=== PATIENT | male | born 1955 | race Caucasian/White ===

== ENCOUNTER → 2018-01-03 | Day surgery (SDC) | payer OTHER ==
[2018-01-02 09:40] LABS: BASOPHILS % 0.5 % (0.0-1.0); EOSINOPHILS # (AUTO) 0.1 (0.0-0.4); LYMPHOCYTES % 36.6 % (18.0-39.1); MEAN CORPUSCULAR HEMOGLOBIN 31.1 pg (28-32); MEAN CORPUSCULAR HGB CONC 33.3 g/dL (31-35); MEAN CORPUSCULAR VOLUME 93.3 fL (81-99); MONOCYTES # (AUTO) 0.5 (0.2-0.8); MONOCYTES % 8.5 % (4.4-11.3); NEUTROPHILS # (AUTO) 2.9 (2.1-6.9); NEUTROPHILS % 52.2 % (38.7-80.0); PLATELET COUNT 165 x10e3/uL (140-360); RED BLOOD COUNT 3.86 x10e6/uL (4.3-5.7); RED CELL DISTRIBUTION WIDTH 12.7 % (11.7-14.4)
[2018-01-02 09:59] LABS: ALANINE AMINOTRANSFERASE 27 IU/L (0-55); ALBUMIN 4.3 g/dL (3.5-5.0); ALBUMIN/GLOBULIN RATIO 1.6 (0.8-2.0); ALKALINE PHOSPHATASE 35 IU/L (40-150); BLOOD UREA NITROGEN 19 mg/dL (7-26); BUN/CREATININE RATIO 18 (6-25); CALCIUM 9.9 mg/dL (8.4-10.2); CARBON DIOXIDE 29 mmol/L (22-29); CHLORIDE 106 mmol/L (98-107); CREATININE, SERUM 1.08 mg/dL (0.72-1.25); EST GLOMERULAR FILTRATION RATE > 60 ML/MIN (60-); GLUCOSE 94 mg/dL (74-118); SODIUM 144 mmol/L (136-145)
[~2018-01-03] VITALS: Ht 193 cm; Wt 127.0 kg
[2018-01-03] VITALS (11 sets, daily range): BP systolic 131–156; BP diastolic 82–96
[~2018-01-03] MED LIST: ALPRAZOLAM 0.5 MG TAB ONE; ASPIRIN325 MG PO; CATAPRES-TTS 11 EACH TD; CLONIDINE HCL0.1 MG PO; DIPHENHYDRAMINE HCL 25 MG CAP ONE; DYAZIDE 37.5-21 EACH PO; ELAVIL PO; FENOFIBRATE145 MG PO; FENTANYL CITRATE/PF 100MCG/2 ML INJ ONE; GABAPENTIN300 MG PO; HEPARIN SOD (PORCINE) 1000 UNIT/ML 30ML ONE; HEPARIN SOD/SOD CHLORIDE 2,000 ML ONE; IOPAMIDOL 370 MG/ML 200 ML INFUS..BTL INJ ONE; LIDOCAINE HCL 2% LOCAL 20 ML VIAL ONE; LIPITOR20 MG PO; LOPRESSOR25 MG PO; LORAZEPAM0.5 MG PO; MIDAZOLAM HCL 2 MG/2 ML VIAL ONE; NEXIUM40 MG PO; NITROGLYCERIN/D5W 200 MCG/ML 250 ML ONE; NORVASC5 MG PO; PRAMIPEXOLE D0.25 MG PO; SODIUM CHLORIDE 0.9% 1000ML 1,000 ML ONE; TYLENOL WITH C1 EACH PO; VERAPAMIL HCL 2.5 MG/ML 2 ML VIAL ONE; ZANAFLEX4 M1 PO; ZANAFLEX4 MG; ZETIA10 MG PO
--- OUTSIDE RECORDS SUMMARY | 2018-01-03 10:06 | XMS REPORT ---
Author Author [facility] Address Unknown Phone Unavailable Care Team Providers Care Plan Nurse Name Role Phone CORTEZ MCCOY III Unavailable Unavailable Problems This patient has no known problems. Allergies, Adverse Reactions, Alerts This patient has no known allergies or adverse reactions. Medications This patient has no known medications. Encounters Start Date/Time End Date/Time Encounter Type Admission Type Attending Clinicians Care Facility Care Department Encounter ID 2017-02-01 06:37:00 2017-02-01 11:30:00 Outpatient C CORTEZ MCCOY III [facility] [place] [id number]
--- NOTE | 2018-01-03 14:28 | Operative Report ---
DATE OF PROCEDURE: January 03, 2018 INDICATIONS: Coronary artery disease with abnormal stress test. PROCEDURES PERFORMED 1. Left heart catheterization, selective coronary angiography. 2. Deployment of right wrist transradial band. COMPLICATIONS: None. RECOMMENDATIONS: Aggressive medical therapy. Access was obtained in the right radial artery. The right ostia of the posterior descending artery had 50% stenosis. Stent in the mid circumflex artery widely patent without restenosis. The left anterior descending artery had mild less than 20% stenosis. No critical lesions were noted. No intervention indicated. Guide and sheath were removed. Right wrist TR band applied. Patient discharged home the same day. Job#: [id number]
== END | disposition home or self-care (01) ==
LOC: CATH LAB 10:04
PROVIDERS: ATTEND Internal Medicine Interventional Cardiology
DX: I25.118 Atherosclerotic heart disease of native coronary artery with other forms of angina pectoris (principal); R94.39 Abnormal result of other cardiovascular function study; Z01.812 Encounter for preprocedural laboratory examination; Z68.35 Body mass index [BMI] 35.0-35.9, adult; Z95.5 Presence of coronary angioplasty implant and graft; Z82.49 Family history of ischemic heart disease and other diseases of the circulatory system
CPT/HCPCS: 36415; 80053; 85025; 93458; C1887; J1644; J2001; J2250; J7030; Q9967; 36140; 77002

== ENCOUNTER → 2020-02-13 | Day surgery (SDC) | payer MEDICARE, OTHER ==
[~2020-02-13] VITALS: Ht 193 cm; Wt 127.0 kg
[~2020-02-13] MED LIST changes: +ACETAMINOPHEN 325 MG TAB ONE; -ALPRAZOLAM 0.5 MG TAB ONE; +BENZOCAINE 20% SPR 60 ML CAN ONE; -DIPHENHYDRAMINE HCL 25 MG CAP ONE; -HEPARIN SOD (PORCINE) 1000 UNIT/ML 30ML ONE; -HEPARIN SOD/SOD CHLORIDE 2,000 ML ONE; -IOPAMIDOL 370 MG/ML 200 ML INFUS..BTL INJ ONE; -LIDOCAINE HCL 2% LOCAL 20 ML VIAL ONE; -NITROGLYCERIN/D5W 200 MCG/ML 250 ML ONE; +SODIUM CHLORIDE 0.9% 1000ML 1,000 ML IV STA; -VERAPAMIL HCL 2.5 MG/ML 2 ML VIAL ONE
--- NOTE | 2020-02-13 08:59 | Diagnostic Imaging Report ---
EXAMINATION: CHEST SINGLE (PORTABLE) INDICATION: Atrial flutter COMPARISON: None FINDINGS: LINES/TUBES:Left chest pacer. EKG leads overlie the chest. LUNGS:The lungs are well-inflated. No focal consolidation or pulmonary edema. Mild left basilar subsegmental atelectasis. PLEURA:No pleural effusion or pneumothorax. MEDIASTINUM:The cardiomediastinal silhouette appears normal in size and shape. Atherosclerotic calcifications of the thoracic aorta. BONES/SOFT TISSUES:No acute osseous injury. ABDOMEN:No free air under the diaphragm. IMPRESSION: Mild left basilar subsegmental atelectasis. No focal pneumonia or pulmonary edema. Signed by: Medina Agustin MD on 02/13/2020 8:56 AM
[2020-02-13 09:22] LABS: BASOPHILS % 0.5 % (0.0-1.0); HEMATOCRIT 38.7 % (38.2-49.6); HEMOGLOBIN 12.3 g/dL (14.0-18.0); LYMPHOCYTES # (AUTO) 0.9 (1.0-3.2); MEAN CORPUSCULAR HEMOGLOBIN 29.9 pg (28-32); MEAN CORPUSCULAR HGB CONC 31.8 g/dL (31-35); MEAN CORPUSCULAR VOLUME 93.9 fL (81-99); MONOCYTES # (AUTO) 0.6 (0.2-0.8); MONOCYTES % 16.2 % (4.4-11.3); NEUTROPHILS # (AUTO) 2.4 (2.1-6.9); NEUTROPHILS % 60.3 % (38.7-80.0); PLATELET COUNT 133 x10e3/uL (140-360); RED BLOOD COUNT 4.12 x10e6/uL (4.3-5.7); RED CELL DISTRIBUTION WIDTH 13.5 % (11.7-14.4)
[2020-02-13 09:34] LABS: INR 1.08; PROTHROMBIN TIME 14.7 seconds (11.9-14.5)
[2020-02-13 09:35] LABS: PARTIAL THROMBOPLASTIN TIME 30.1 seconds (23.8-35.5)
[2020-02-13 09:44] LABS: ALANINE AMINOTRANSFERASE 22 IU/L (0-55); ALBUMIN/GLOBULIN RATIO 1.5 (0.8-2.0); ALKALINE PHOSPHATASE 45 IU/L (40-150); ANION GAP 11.4 mmol/L (8-16); BLOOD UREA NITROGEN 16 mg/dL (7-26); BUN/CREATININE RATIO 16 (6-25); CARBON DIOXIDE 26 mmol/L (22-29); CHLORIDE 107 mmol/L (98-107); CREATINE KINASE 209 IU/L (30-200); CREATININE, SERUM 0.97 mg/dL (0.72-1.25); EST GLOMERULAR FILTRATION RATE > 60 ML/MIN (60-); GLUCOSE 85 mg/dL (74-118); POTASSIUM 4.4 mmol/L (3.5-5.1); SODIUM 140 mmol/L (136-145)
--- NOTE | 2020-02-13 11:36 | Emergency Department Note ---
History of Present Illnes History of Present Illness Chief Complaint: General Medicine Complaints History of Present Illness This is a 64 year old male HERE FOR HIGH HEART RATE, SENT BY DR. MTZ FOR EVALUATION. REPORTS THAT SMITH WILL BE IN TO CARDIOVERT AT HOSPITAL. Historian: Patient Arrival Mode: Car Linker Up Required: No Onset (how long ago): day(s) (3) Location: HEART Quality: TACHYCARDIA Radiation: Reports non-radiation Severity: mild Onset quality: gradual Timing of current episode: constant Progression: waxing and waning Chronicity: new Context: Denies recent illness Relieving factors: none Exacerbating factors: none Associated symptoms: Reports denies other symptoms Treatments prior to arrival: other (DR MTZ GAVE IV AMIODARONE IN OFFICE YEST, STARTED PO 400 BID) Past Medical/Family History Physician Review I have reviewed the patient's past medical and family history. Any updates have been documented here. Past Medical History Recent Fever: No Clinical Suspicion of Infectio: No New/Unexplained Change in Ment: No Past Medical History: Hypertension, CAD, Hyperlipedemia Other Medical History: NEW ONSET A-FLUTTER DX'D 02/12/2020 Past Surgical History: Pacer/AICD, Hip Replacement, Orthopedic Implants Social History Smoking Cessation: Unknown if ever smoked Counseling Performed: No Alcohol Use: None Any Illegal Drug Use: No TB Exposure/Symptoms: No Physically hurt or threatened: No Other Any Pre-Existing Lines (PICC,: No Last Flu: y Last Pneumovax: y Review of Systems Review of Systems Constitutional: Reports no symptoms EENTM: Reports no symptoms Cardiovascular: Reports no symptoms Respiratory: Reports no symptoms Gastrointestinal: Reports no symptoms Genitourinary: Reports no symptoms Musculoskeletal: Reports no symptoms Integumentary: Reports no symptoms Neurological: Reports other (DIZZINESS WITH STANDING) Psychological: Reports no symptoms Endocrine: Reports no symptoms Hematological/Lymphatic: Reports no symptoms Physical Exam Related Data Allergies: Coded Allergies: No Known Allergies (Unverified , 02/13/20) Triage Vital Signs Vital Signs Date Time Temp Pulse Resp B/P (MAP) Pulse Ox O2 Delivery O2 Flow Rate FiO2 02/13/20 08:19 97.9 118 16 95/79 98 Vital signs reviewed: Yes Physical Exam CONSTITUTIONAL Constitutional: Present well-developed, Present well-nourished HENT HENT: Present normocephalic, Present atraumatic, Present oropharynx clear/moist, Present nose normal HENT L/R: Present left ext ear normal, Present right ext ear normal EYES Eyes: Reports PERRL, Reports conjunctivae normal NECK Neck: Present ROM normal PULMONARY Pulmonary: Present effort normal, Present breath sounds normal CARDIOVASCULAR Cardiovascular: Present regular rhythm, Present tachycardia GASTROINTESTINAL Abdominal: Present soft, Present nontender, Present bowel sounds normal GENITOURINARY Genitourinary: Present exam deferred SKIN Skin: Present warm, Present dry MUSCULOSKELETAL Musculoskeletal: Present ROM normal NEUROLOGICAL Neurological: Present alert, Present oriented x 3, Present no gross motor or sensory deficits PSYCHOLOGICAL Psychological: Present mood/affect normal, Present judgement normal Results Laboratory Result Diagram: 02/13/20 0820 02/13/20 0820 Laboratory Laboratory Tests Test 02/13/20 08:20 White Blood Count 3.95 x10e3/uL (4.8-10.8) Red Blood Count 4.12 x10e6/uL (4.3-5.7) Hemoglobin 12.3 g/dL (14.0-18.0) Hematocrit 38.7 % (38.2-49.6) Mean Corpuscular Volume 93.9 fL (81-99) Mean Corpuscular Hemoglobin 29.9 pg (28-32) Mean Corpuscular Hemoglobin Concent 31.8 g/dL (31-35) Red Cell Distribution Width 13.5 % (11.7-14.4) Platelet Count 133 x10e3/uL (140-360) Neutrophils (%) (Auto) 60.3 % (38.7-80.0) Lymphocytes (%) (Auto) 22.0 % (18.0-39.1) Monocytes (%) (Auto) 16.2 % (4.4-11.3) Eosinophils (%) (Auto) 1.0 % (0.0-6.0) Basophils (%) (Auto) 0.5 % (0.0-1.0) Neutrophils # (Auto) 2.4 (2.1-6.9) Lymphocytes # (Auto) 0.9 (1.0-3.2) Monocytes # (Auto) 0.6 (0.2-0.8) Eosinophils # (Auto) 0.0 (0.0-0.4) Basophils # (Auto) 0.0 (0.0-0.1) Absolute Immature Granulocyte (auto 0 x10e3/uL (0-0.1) Prothrombin Time 14.7 seconds (11.9-14.5) Prothromb Time International Ratio 1.08 Activated Partial Thromboplast Time 30.1 seconds (23.8-35.5) Sodium Level 140 mmol/L (136-145) Potassium Level 4.4 mmol/L (3.5-5.1) Chloride Level 107 mmol/L (98-107) Carbon Dioxide Level 26 mmol/L (22-29) Anion Gap 11.4 mmol/L (8-16) Blood Urea Nitrogen 16 mg/dL (7-26) Creatinine 0.97 mg/dL (0.72-1.25) Estimat Glomerular Filtration Rate > 60 ML/MIN (60-) BUN/Creatinine Ratio 16 (6-25) Glucose Level 85 mg/dL (74-118) Calcium Level 9.0 mg/dL (8.4-10.2) Total Bilirubin 0.3 mg/dL (0.2-1.2) Aspartate Amino Transf (AST/SGOT) 19 IU/L (5-34) Alanine Aminotransferase (ALT/SGPT) 22 IU/L (0-55) Alkaline Phosphatase 45 IU/L (40-150) Creatine Kinase 209 IU/L (30-200) Creatine Kinase MB 1.10 ng/mL (0-5.0) Troponin I 0.033 ng/mL (0-0.300) B-Type Natriuretic Peptide 215.0 pg/mL (0-100) Total Protein 6.7 g/dL (6.5-8.1) Albumin 4.0 g/dL (3.5-5.0) Globulin 2.7 g/dL (2.3-3.5) Albumin/Globulin Ratio 1.5 (0.8-2.0) Lab results reviewed: Yes Imaging Imaging results reviewed: Yes Impressions Procedure: [id number] DX/CHEST SINGLE (PORTABLE) Exam Date: 02/13/20 Exam Time: 819 REPORT STATUS: Signed EXAMINATION: CHEST SINGLE (PORTABLE) INDICATION: Atrial flutter COMPARISON: None FINDINGS: LINES/TUBES:Left chest pacer. EKG leads overlie the chest. LUNGS:The lungs are well-inflated. No focal consolidation or pulmonary edema. Mild left basilar subsegmental atelectasis. PLEURA:No pleural effusion or pneumothorax. MEDIASTINUM:The cardiomediastinal silhouette appears normal in size and shape. Atherosclerotic calcifications of the thoracic aorta. BONES/SOFT TISSUES:No acute osseous injury. ABDOMEN:No free air under the diaphragm. IMPRESSION: Mild left basilar subsegmental atelectasis. No focal pneumonia or pulmonary edema. Signed by: Medina Agustin MD on 02/13/2020 8:56 AM Procedures 12 Lead ECG Interpretation ECG Interpretation : ECG: ECG 1 Linker Up: Interpreted by ED physician Date: Feb 13, 2020 Time: 08:17 Rhythm: atrial flutter (2:1 CONDUCTION) QRS axis: left ST segments normal: Yes T wave inversion: II, III T waves flattening: I, aVL, aVF Clinical Impression: abnormal ECG Assessment & Plan Medical Decision Making MDM CHECK CBC, CHEM, CARDIACS, ECG, TSH, CXR - R/O ELECTROLYTE ABNL, HYPERTHYROID, STEMI/NSTEMI Reassessment Reassessment DR MTZ WANTS [facility] AND THEN WILL CARDIOVERT PT WENT TO [facility], SYNC CARDIOVERTED TO [facility] - DC PER DR MTZ Assessment & Plan Final Impression: (1) Atrial flutter Depart Disposition: HOME, SELF-CARE Last Vital Signs Date Time Temp Pulse Resp B/P (MAP) Pulse Ox O2 Delivery O2 Flow Rate FiO2 02/13/20 09:58 78 18 116/86 98 02/13/20 08:19 97.9 Home Meds Reported Medications Gabapentin (GABAPENTIN) 300 Mg Capsule, 300 MG PO DAILY, #60 CAP 01/02/18 Lorazepam (LORAZEPAM) 0.5 Mg Tablet, 0.5 MG PO Q6H PRN for ANXIETY, TAB 01/02/18 Tizanidine Hcl (ZANAFLEX) 4 Mg Tablet 01/02/18 Tizanidine Hcl (ZANAFLEX) 4 Mg Capsule, 4 MG PO TID PRN for INDIGESTION 01/02/18 Amlodipine Besylate (NORVASC) 5 Mg Tab, 5 MG PO DAILY, #30 TAB 01/02/18 Metoprolol Tartrate (LOPRESSOR) 25 Mg Tab, 100 MG PO DAILY, #60 TAB 01/02/18 Clonidine Hcl (CLONIDINE HCL) 0.1 Mg Tablet, 1 TAB PO HS, #60 TAB 01/02/18 Clonidine (CATAPRES-TTS 1) 1 Each Patch.tdwk, 1 EACH TD, PATCH 01/02/18 Atorvastatin Calcium (LIPITOR) 20 Mg Tablet, 40 MG PO DAILY, #30 TAB 01/02/18 Ezetimibe (ZETIA) 10 Mg Tablet, 10 MG PO DAILY, #30 TAB 01/02/18 Fenofibrate Nanocrystallized (FENOFIBRATE) 145 Mg Tablet, 145 MG PO DAILY 01/02/18 [Elavil] No Conflict Check, 50 MG PO DAILY 01/02/18 Aspirin (ASPIRIN) 325 Mg Tablet, 325 MG PO DAILY, #30 TAB 01/02/18 Acetaminophen With Codeine (TYLENOL WITH CODEINE #3 TABLET) 1 Each Tablet, 300 MG PO PRN, TAB 01/02/18 Esomeprazole Magnesium (NEXIUM) 40 Mg Capsule.dr, 40 MG PO DAILY PROTONIX [facility] FOR NEXIUM [facility] 01/02/18 Pramipexole Di-Hcl (PRAMIPEXOLE DIHYDROCHLORIDE) 0.25 Mg Tablet, 0.5 MG PO DAILY 01/02/18 Triamterene/Hydrochlorothiazid (DYAZIDE 37.5-25 CAPSULE) 1 Each Capsule, 1 CAP PO DAILY 01/02/18 Medications in the ED Sodium Chloride 1,000 ml @ 0 mls/hr Q0M STAT IV Last administered on 02/13/20at 09:08; Admin Dose 1,000 MLS/HR; Start 02/13/20 at 08:29; Stop 02/13/20 at 08:31; Status DC Midazolam HCl 4 mg STK-MED ONCE .ROUTE ; Start 02/13/20 at 11:17; Stop 02/13/20 at 11:12; Status DC Fentanyl Citrate 100 mcg STK-MED ONCE .ROUTE ; Start 02/13/20 at 11:17; Stop 02/13/20 at 11:12; Status DC Benzocaine 60 ml STK-MED ONCE .ROUTE ; Start 02/13/20 at 11:17; Stop 02/13/20 at 11:12; Status DC Sodium Chloride 1,000 ml @ ud STK-MED ONCE .ROUTE ; Start 02/13/20 at 11:17; Stop 02/13/20 at 11:12; Status DC SEAN PEREZ MD Feb 13, 2020 11:36
[2020-02-13 13:51] VITALS: BP 130/98
[2020-02-13 13:53] VITALS: BP 141/96
[2020-02-13 14:00] VITALS: BP 140/90
--- OUTSIDE RECORDS SUMMARY | 2020-03-19 01:48 | XMS REPORT | Continuity of Care Document ---
Author Author [facility] t Organization [facility] Address [address] [place] [address] Phone Unavailable Care Team Providers Care Quality Head Name Role Phone Tyrese PEREZ Attphys Unavailable Doctor Unassigned, Name No Attphys Unavailable Jaxson Smith MD Attphys HADNOTT III, DR TORO Attphyjaxson Unavailable HADNOTT III, DR TORO Admphyjaxson Unavailable Payers Payer Name Policy Type Policy Number Effective Date Expiration Date S ource Problems This patient has no known problems. Allergies, Adverse Reactions, Alerts Allergy Name Allergy Type Status Severity Reaction(s) Onset Date Inacti ve Date Treating Clinician Comments Source No Known Allergies DA Active U 2019-12-31 00:00:00 [facility] No Known Allergies DA Active U 2019-10-29 00:00:00 [facility] Medications This patient has no known medications. Procedures This patient has no known procedures. Encounters Start Date/Time End Date/Time Encounter Type Admission Type Attendi [facility] Care Department Encounter ID Source 2019-10-14 00:00:00 2019-10-14 00:00:00 Orders Only D octor Unassigned, [place] [id number] 2019-04-23 00:00:00 2019-04-23 00:00:00 Orders Only D octor Unassigned, [place] [id number] 2019-04-22 11:21:58 2019-04-22 23:59:00 Hospital Encounter Sohail Smith [facility] ([facility]) [id number] 2017-02-01 06:37:00 2017-02-01 11:30:00 Outpatient C HADNOTT I II, [place] [id number] [facility] Results Test Description Test Time Test Comments Results Result Comments Source CHEST SINGLE (PORTABLE) 2020-02-13 08:55:00 [place] [address] Patient Name: BECCA LOPEZ MR #: [id number] : 1955 Age/Sex: 64/M Req #: [id number] Adm Physician: Ordered by: SEAN PEREZ MD Report #: [id number] Location: ER Room/Bed: Procedure: [id number] DX/CHEST SINGLE (PORTABLE) Exam Date: 02/13/20 Exam Time: 08 REPORT STATUS: Signed EXAMINATION: CHEST SINGLE (PORTABLE) INDICATION: Atrial flutter COMPARISON: None FINDINGS: LINES/TUBES:Left chest pacer. EKG leads overlie the chest. LUNGS:The lungs are well-inflated. No focal consolidation or pulmonary edema. Mild left basilar subsegmental atelectasis. PLEURA:No pleural effusion or pneumothorax. MEDIASTINUM:The cardiomediastinal silhouette appears normal in size and shape. Atherosclerotic calcifications of the thoracic aorta. BONES/SOFT TISSUES:No acute osseous injury. ABDOMEN:No free air under the diaphragm. IMPRESSION: Mild left basilar subsegmental atelectasis. No focal pneumonia or pulmonary edema. Signed by: Henny Devine MD on 02/13/2020 8:56 AM Dictated By: HENNY DEVINE MD 5 Transcribed By: AGUS on 02/13/20855 COPY TO: SEAN PEREZ MD - XR CHEST 1 V 2020-01-03 07:17:00 FAX: Lucio Mckeon MD [phone] [place]: St: ADM FAX: Ha Cole [phone] FAX: Jeremías Olivares NP [phone] Name: BECCA LOPEZ [facility] : 1955 Age/S: 64/M [address] [place] [address] Unit #: [id number] Loc: [address] [place] [address] Phys: Jeremías Olivares NP Acct: [id number] Dis Date: Status: ADM IN PHONE #: [phone] Exam Date: 01/03/2020 0654 FAX #: [phone] Reason: Post PM/ICD EXAMS: CPT CODE: [id number] XR CHEST 1 V 35444 Chest single view 01/03/2020 HISTORY: Pacemaker placement Comparison is made to 01/02/2020 FINDINGS: Cardiomegaly is stable. Prominent aorta is unchanged. Pacemaker is stable. The lungs are hypoinflated. Right base atelectasis is not significantly changed. Left lung is clear. No significant interstitial edema is present. IMPRESSION: Stable chest. SL: [id number] at 0717 Reported and signed by: Joseph Betancourt M.D. CC: Lucio Mckeon MD; Ha Novoa MD; Jeremías Olivares NP Technologist: Kristen Munguia, RT(R); Sita Vásquez, RT(R) Trnscrd Date/Time/By: 01/03/2020 (0766) : By: [email or web address] Orig Print D/T: S: 01/03/2020 (6080) PAGE 1 Signed Report - XR CHEST 1 V 2020-01-02 13:58:00 FAX: Lucio Mckeon MD [phone] [place]: St: ADM FAX: Ha Cole [phone] FAX: Jeremías Olivares NP [phone] Name: BECCA LOPEZ [facility] : 1955 Age/S: 64/M [address] [place] [address] Unit #: [id number] Loc: [place] [address] Phys: Jeremías Olivares NP Acct: [id number] Dis Date: Status: ADM IN PHONE #: [phone] Exam Date: 01/02/2020 1356 FAX #: [phone] Reason: Post PM/ICD EXAMS: CPT CODE: [id number] XR CHEST 1 V 55711 Clinical Indication: Post pacemaker/ICD placement. Atrial fibrillation. Comparison: 12/31/2019. Impression: Chest, single view submitted on 3 images secondary to cassette artifact. Cardiac pacemaker overlies left chest. No pneumothorax. Cardiomegaly without failure. No consolidation or pleural effusion. No acute osseous abnormality. SL: [id number] at 6822 Reported and signed by: Polo Joseph M.D. CC: Lucio Mckeon MD; Ha Novoa MD; Jeremías Olivares NP Technologist: RT Dandy(Angeles) Trnscrd Date/Time/By: 01/02/2020 (1358) : By: [email or web address] Orig Print D/T: S: 01/02/2020 (0554) PAGE 1 Signed Report ACT-ISTAT 2020-01-02 10:47:00 Test Item ACT-ISTAT (test code = ACTI) 329 SEC 74-137 H Performed by certified liquor gallery operator at [facility] [id number] 10:28:00* Test Item Value Reference Range Interpretation Comments ACT-ISTAT (test code = ACTI) 301 SEC 74-137 H Performed by certified liquor gallery operator at [facility] [id number] 10:28:00* Test Item Value Reference Range Interpretation Comments ACT-ISTAT (test code = ACTI) 307 SEC 74-137 H Performed by certified liquor gallery operator at [facility] [id number] 10:28:00* Test Item Value Reference Range Interpretation Comments ACT-ISTAT (test code = ACTI) 301 SEC 74-137 H Performed by certified liquor gallery operator at [facility] [id number] 10:28:00* Test Item Value Reference Range Interpretation Comments ACT-ISTAT (test code = ACTI) 274 SEC 74-137 H Performed by certified liquor gallery operator at [facility] [id number] 10:28:00* Test Item Value Reference Range Interpretation Comments ACT-ISTAT (test code = ACTI) 235 SEC 74-137 H Performed by certified liquor gallery operator at [facility] [id number] 08:47:00* Test Item Value Reference Range Interpretation Comments ACT-ISTAT (test code = ACTI) 202 SEC 74-137 H Performed by certified liquor gallery operator at [facility] Novel Coronavirus 2019 [id number] 23:23:00* Test Item Value Reference Range Interpretation Comments Novel Coronavirus 2019 Inhouse (test code = COVNONPUI) Negative Negative - XR CHEST 2 [id number] 12:06:00 FAX: Lucio Mckeon MD [phone] [place]: St: PRE FAX: Y Ha Jovel [phone] Name: BECCA LOPEZ [facility] : 1955 Age/S: 64/M [address] [place] [address] Blvd Unit #: [id number] Loc: [place] [address] Phys: Ha Jovel MD Acct: [id number] Dis Date: Status: PRE SDC PHONE #: [phone] Exam Date: 12/31/2019 1141 FAX #: [phone] Reason: PRE-OP ABLATION EXAMS: CPT CODE: [id number] XR CHEST 2 V 50764 PROCEDURE: CHEST TWO VIEW INDICATION: Preoperative exam for ablation. Atrial fibrillation COMPARISON: 10/29/2019 FINDINGS: The lungs are hypoinflated but clear. There are mild degenerative changes throughout the thoracic spine. Heart size is within normal limits. Aorta is mildly tortuous. IMPRESSION: No acute cardiopulmonary process. SL: [id number] at 1206 Reported and signed by: Joseph Betancourt M.D. CC: Lucio Mckeon MD; Ha Novoa MD Technologist: RT Carley(Angeles) Trnscrd Date/Time/By: 12/31/2019 (2379) : By: [email or web address] Orig Print D/T: S: 12/31/2019 (2356) PAGE 1 Signed Report BASIC METABOLIC [id number] 11:53:00* Test Item Value Reference Range Interpretation Comments SODIUM (test code = NA) 140 mEq/L 134-147 N POTASSIUM (test code = K) 4.7 mEq/L 3.4-5.0 N CHLORIDE (test code = CL) 108 mEq/L 100-108 N CARBON DIOXIDE (test code = CO2) 30 mEq/L 21-33 N ANION GAP (test code = GAP) 7 0-20 N GLUCOSE (test code = GLU) 91 mg/dL 70-110 N BLOOD UREA NITROGEN (test code = BUN) 20 mg/dL 7-18 H GLOMERULAR FILTRATION RATE (test code = GFR) 84.4 80-90 N Units of measure = ml/min/1.73 m2 CREATININE (test code = CREAT) 0.9 mg/dL 0.6-1.3 N CALCIUM (test code = CA) 8.9 mg/dL 8.0-10.5 N BASIC METABOLIC [id number] 11:47:00* Test Item Value Reference Range Interpretation Comments SODIUM (test code = NA) 140 mEq/L 134-147 N POTASSIUM (test code = K) 4.7 mEq/L 3.4-5.0 N CHLORIDE (test code = CL) 108 mEq/L 100-108 N CARBON DIOXIDE (test code = CO2) 30 mEq/L 21-33 N ANION GAP (test code = GAP) 7 0-20 N GLUCOSE (test code = GLU) 91 mg/dL 70-110 N BLOOD UREA NITROGEN (test code = BUN) 20 mg/dL 7-18 H GLOMERULAR FILTRATION RATE (test code = GFR) 80-90 CREATININE (test code = CREAT) mg/dL 0.6-1.3 CALCIUM (test code = CA) 8.9 mg/dL 8.0-10.5 N CBC W/AUTO [id number] 11:35:00* Test Item Value Reference Range Interpretation Comments WHITE BLOOD CELL (test code = WBC) 5.82 x10 3/uL 4.5-11.0 N RED BLOOD CELL (test code = RBC) 4.32 x10 6/uL 4.00-5.60 N HEMOGLOBIN (test code = HGB) 13.1 g/dL 12.5-16.9 N HEMATOCRIT (test code = HCT) 41.0 % 37.5-50.7 N MEAN CELL VOLUME (test code = MCV) 94.9 fL 81.0-99.0 N MEAN CELL HGB (test code = MCH) 30.3 pg 27.0-33.0 N MEAN CELL HGB CONCETRATION (test code = MCHC) 32.0 g/dL 33.0-37. 0 L RED CELL DISTRIBUTION WIDTH CV (test code = RDW) 12.7 % 11.5- 14.5 N RED CELL DISTRIBUTION WIDTH SD (test code = RDW-SD) 44.6 fL 37 .0-54.0 N PLATELET COUNT (test code = PLT) 155 x10 3/uL 150-400 N MEAN PLATELET VOLUME (test code = MPV) 10.2 fL 7.0-9.0 H NEUTROPHIL % (test code = NT%) 59.3 % 56.0-77.0 N IMMATURE GRANULOCYTE % (test code = IG%) 0.0 % 0.0-2.0 N LYMPHOCYTE % (test code = LY%) 29.9 % 14.0-32.0 N MONOCYTE % (test code = MO%) 8.4 % 4.8-9.0 N EOSINOPHIL % (test code = EO%) 2.1 % 0.3-3.7 N BASOPHIL % (test code = BA%) 0.3 % 0.0-2.0 N NUCLEATED RBC % (test code = NRBC%) 0.0 % 0-0 N NEUTROPHIL # (test code = NT#) 3.45 x10 3/uL 2.0-7.6 N IMMATURE GRANULOCYTE # (test code = IG#) 0.00 x10 3/uL 0.00-0.03 N LYMPHOCYTE # (test code = LY#) 1.74 x10 3/uL 1.0-3.8 N MONOCYTE # (test code = MO#) 0.49 x10 3/uL 0.1-0.8 N EOSINOPHIL # (test code = EO#) 0.12 x10 3/uL 0.0-0.2 N BASOPHIL # (test code = BA#) 0.02 x10 3/uL 0.0-0.2 N NUCLEATED RBC # (test code = NRBC#) 0.00 x10 3/uL 0.0-0.1 N MANUAL DIFF REQUIRED (test code = MDIFF) NO - XR CHEST 2 [id number] 12:08:00 FAX: Lucio Mckeon MD [phone] [place]: St: PRE FAX: Ha oCle [phone] Name: BECCA LOPEZ [facility] : 1955 Age/S: 63/M [address] [place] [address] Blvd Unit #: [id number] Loc: [place] [address] Phys: Ha Jovel MD Acct: [id number] Dis Date: Status: PRE SDC PHONE #: [phone] Exam Date: 10/29/2019 110 FAX #: [phone] Reason: PRE-OP ABLATION, PACEMAKER IMPLANT EXAMS: CPT CODE: [id number] XR CHEST 2 V 69000 EXAM: PA and lateral chest. EXAM DATE: October 29, 2019 CLINICAL HISTORY: PRE-OP ABLATION, PACEMAKER IMPLANT COMPARISON: None Mild cardiomegaly is identified. Atherosclerotic calcifications and tortuosity of the intrathoracic aorta is identified.. The lungs appear free of acute disease. Degenerative changes are identified in the thoracic spine. IMPRESSION: Mild cardiomegaly. at 1208 Reported and signed by: Haley Weaver M.D. CC: Lucio Mckeon MD; Ha Novoa MD Technologist: RT Miguel(Angeles) Trnscrd Date/Time/By: 10/29/2019 (1208) : By: Arabella Orig Print D/T: S: 10/29/2019 (4954) PAGE 1 Signed Report BASIC METABOLIC PANEL 2019-10-29 11:45:00* Test Item Value Reference Range Interpretation Comments SODIUM (test code = NA) 140 mEq/L 134-147 N POTASSIUM (test code = K) 4.2 mEq/L 3.4-5.0 N CHLORIDE (test code = CL) 106 mEq/L 100-108 N CARBON DIOXIDE (test code = CO2) 32 mEq/L 21-33 N ANION GAP (test code = GAP) 6 0-20 N GLUCOSE (test code = GLU) 93 mg/dL 70-110 N BLOOD UREA NITROGEN (test code = BUN) 20 mg/dL 7-18 H GLOMERULAR FILTRATION RATE (test code = GFR) 75.0 80-90 L Units of measure = ml/min/1.73 m2 CREATININE (test code = CREAT) 1.0 mg/dL 0.6-1.3 N CALCIUM (test code = CA) 9.0 mg/dL 8.0-10.5 N PROTHROMBIN [id number] 11:31:00* Test Item Value Reference Range Interpretation Comments PROTHROMBIN TIME PATIENT (test code = PTP) 12.5 SECONDS 9.3-12.9 N INTERNATIONAL NORMAL RATIO (test code = INR) 1.1 0.8-1.2 N TARGET INR BY INDICATION Indication INR1. Prophylaxis of venous thrombosis 2.0 - 3.0 (orthopedic surgery), Prophylaxis of venous thrombosis (other than high-risk surgery), Treatment of Deep Vein Thrombosis/Pulmonary Embolism, Prevention of systemic embolism - Tissue heart valves, Acute Myocardial Infarction (to prevent systemic embolism), Valvular heart disease, Atrial Fibrillation, Bileaflet mechanical valve in aortic position.2. Mechanical prosthetic valves (high risk), 2.5 - 3.5 Presence of Lupus Anticoagulant or Antiphospholipid Antibodies, Prevention of systemic embolism - Acute Myocardial Infarction (to prevent recurrent infarct). CBC W/AUTO [id number] 11:26:00* Test Item Value Reference Range Interpretation Comments WHITE BLOOD CELL (test code = WBC) 6.70 x10 3/uL 4.5-11.0 N RED BLOOD CELL (test code = RBC) 4.28 x10 6/uL 4.00-5.60 N HEMOGLOBIN (test code = HGB) 12.7 g/dL 12.5-16.9 N HEMATOCRIT (test code = HCT) 41.0 % 37.5-50.7 N MEAN CELL VOLUME (test code = MCV) 95.8 fL 81.0-99.0 N MEAN CELL HGB (test code = MCH) 29.7 pg 27.0-33.0 N MEAN CELL HGB CONCETRATION (test code = MCHC) 31.0 g/dL 33.0-37. 0 L RED CELL DISTRIBUTION WIDTH CV (test code = RDW) 13.3 % 11.5- 14.5 N RED CELL DISTRIBUTION WIDTH SD (test code = RDW-SD) 47.1 fL 37 .0-54.0 N PLATELET COUNT (test code = PLT) 164 x10 3/uL 150-400 N MEAN PLATELET VOLUME (test code = MPV) 10.9 fL 7.0-9.0 H NEUTROPHIL % (test code = NT%) 62.1 % 56.0-77.0 N IMMATURE GRANULOCYTE % (test code = IG%) 0.3 % 0.0-2.0 N LYMPHOCYTE % (test code = LY%) 27.9 % 14.0-32.0 N MONOCYTE % (test code = MO%) 7.9 % 4.8-9.0 N EOSINOPHIL % (test code = EO%) 1.5 % 0.3-3.7 N BASOPHIL % (test code = BA%) 0.3 % 0.0-2.0 N NUCLEATED RBC % (test code = NRBC%) 0.0 % 0-0 N NEUTROPHIL # (test code = NT#) 4.16 x10 3/uL 2.0-7.6 N IMMATURE GRANULOCYTE # (test code = IG#) 0.02 x10 3/uL 0.00-0.03 N LYMPHOCYTE # (test code = LY#) 1.87 x10 3/uL 1.0-3.8 N MONOCYTE # (test code = MO#) 0.53 x10 3/uL 0.1-0.8 N EOSINOPHIL # (test code = EO#) 0.10 x10 3/uL 0.0-0.2 N BASOPHIL # (test code = BA#) 0.02 x10 3/uL 0.0-0.2 N NUCLEATED RBC # (test code = NRBC#) 0.00 x10 3/uL 0.0-0.1 N MANUAL DIFF REQUIRED (test code = MDIFF) NO
--- OUTSIDE RECORDS SUMMARY | 2020-03-19 01:48 | XMS REPORT | Summary of Care ---
Author Author [facility] - Health Organization [facility] - Health Address Unknown Phone Unavailable Care Team Providers Care Clay Roaster Name Role Phone Srinath Kapadia PCP Encounter Details Care Team Description Date Type Department Doctor Unassigned, [place] [address] [place] [address] 10/14/[address] [facility] [address] [place] [address] Allergies Comments Active Allergy Reactions Severity Noted Date Severe headache Nitroglycerin Other - See 04/18/2019 comments documented as of this encounter (statuses as of 10/14/2019) Medications End Date Status Medication Sig Dispensed Refills Start Date Active cloniDINE 0.2 mg/24 hr weekly. 3 01 patch Sunday Active pramipexole 0.5 mg tablet TAKE 1 TABLET 1 01/19 BEFORE 9 BEDTIME ONCE A DAY ONCE A DAY ORALLY 90 DAYS Active esomeprazole 40 mg TAKE ONE 1 capsule CAPSULE BY 9 MOUTH EVERY DAY 90 DAYS Active acetaminophen-codeine every 6 (six) 1 03/30/20 1 300-60 mg tablet hours as 9 needed. Active fenofibrate 145 mg tablet Take 145 mg 0 by mouth daily. Active ezetimibe 10 mg tablet Take 10 mg by 3 01 mouth daily. 9 Active metoprolol tartrate 100 Take 100 mg 0 mg tablet by mouth daily. Active amLODIPine 5 mg tablet Take 5 mg by 0 mouth daily. Active gabapentin 300 mg capsule 2 (two) times 3 03/20 daily. 9 Active triamterene-hydrochloroth Take 1 0 iazide 37.5-25 mg per capsule by capsule mouth every morning. Active atorvastatin 20 mg Take 1 tablet 90 tablet 3 04/22 tabletIndications: by mouth at 9 Percutaneous Coronary bedtime. Intervention Indications: Incision through the Skin to Repair Blood Vessels of Heart Active clopidogrel 75 mg Take 1 tablet 90 tablet 2 tabletIndications: by mouth 9 Percutaneous Coronary daily. Intervention Indications: Incision through the Skin to Repair Blood Vessels of Heart Active aspirin 81 mg chewable Take 1 tablet 90 tablet 3 0 tabletIndications: by mouth 9 coronary artery disease daily. Indications: coronary artery disease documented as of this encounter (statuses as of 10/14/2019) Active Problems Problem Noted Date S/P drug eluting coronary stent placement 04/22/2019 Overview: Synergy DARÍO 2.75mm x 28mm to distal RCA by Dr. Smith on 04/22/19 documented as of this encounter (statuses as of 10/14/2019) Social History Date Tobacco Use Types Packs/Day Years Used Never Assessed Sex Assigned at Date Recorded Not on file Industry Job Start Date Occupation Not on file Not on file Not on file Travel End Travel History Travel Start No recent travel history available. documented as of this encounter Last Filed Vital Signs Not on filedocumented in this encounter Plan of Treatment Care Team Description [place] [address] [address] [phone] 1, Clc Cardiac Proc Room 10/31/2019 Appointment Cardiac Electrophys iology Health Maintenance Due Date Last Done Comments HEPATITIS C (HCV) SCREEN 1955 DTaP,Tdap,and Td Vaccines 1964 (1 - Tdap) COLONOSCOPY 12/09/2003 Zoster Recombinant 12/09/2003 Vaccine (SHINGRIX) (1 of 2) Medicare Wellness Visit 2018 PNEUMOCOCCAL VACCINES 65+ 2018 (1 of 2 - PCV13) INFLUENZA VACCINE (#1) 2019 documented as of this encounter Procedures Comments Procedure Name Priority Date/Time Associated Diag nosis EXTERNAL PROVIDER RECORDS Routine 10/14/2019 12:01 AM EXPENSE CLERK documented in this encounter Results Not on filedocumented in this encounter Insurance Type Payer Benefit Subscriber ID Effective Phone Address Plan / Dates Group Medicare Adv PPO AETNA - MANAGED MEDICARE AETNA [id number] Effective P O BOX MEDICARE for all [id number] [place] [address] documented as of this encounter
--- OUTSIDE RECORDS SUMMARY | 2020-03-19 01:48 | XMS REPORT | Summary of Care ---
Author Author [facility] - Health Organization [facility] - [facility] Address Unknown Phone Unavailable Care Team Providers Care Layout Mechanic Name Role Phone Srinath Kapadia PCP Reason for Referral * Other (Routine) Referred By Contact Referred To Contact Status Reason Specialty Diagnoses / Procedures Celia Rosales [address] [id number] Rosalinda Mtz MD [address] [facility] [address] [place] [address] New Request Diagnoses Abnormal stress test Coronary artery disease with angina pectoris, unspecified vessel or lesion type, unspecified whether minto or transplanted heart S/P drug eluting coronary stent placement P rocedures Discharge Follow-up: Specialty Provider ROSALINDA MTZ; 2 Weeks Reason for Visit * (Routine) Referred By Contact Referred To Contact Status Reason Specialty Diagnoses / Procedures Rosalinda Mtz MD [address] [facility] [address] [place] [address] Rosalinda Mtz MD [address] [place] [address] Closed IM-CARDIOVASCULA Diagnoses R DISEASE / [facility] POSS Cardiac Boring Machine Operator PCI P rocedures ND CATH PLACEMENT & NJX CORONARY ART ANGIO IMG S&I ND CATH PLMT L HRT & ARTS W/NJX & ANGIO IMG S&I ND ENDOLUMINAL CORONARY IVUS OCT I&R INITIAL VESSEL ND IV DOP VITOR&/OR PRESS C/SANJUANA RSRV SANDRA 1ST VSL ND PRQ TRLUML CORONARY ANGIOPLASTY ONE ART/BRANCH ND PRQ TRLUML CORONARY ANGIO/ATHERECT ONE ART/BRNCH ND PRQ TRLUML CORONARY STENT W/ANGIO ONE ART/BRNCH ND PRQ TRLUML CORONRY STENT/ATH/ANGIO ONE ART/BRNCH [facility] Encounter Details Care Team Description Date Type Department Rosalinda Mtz MD [address] [place] [address] [phone], [facility] Cardiac Proc Room S/P drug eluting coronary stent placemen t (Primary Dx); Abnormal stress test; Coronary artery disease with angina pectoris, unspecified vessel or lesion type, unspecified whether minto or transplanted heart 04/22/2019 [facility] enter Encounter - Boring Machine Operator, [facility] [address] [place] [phone] Allergies Comments Active Allergy Reactions Severity Noted Date Severe headache Nitroglycerin Other - See 04/18/2019 comments documented as of this encounter (statuses as of 04/23/2019) Medications End Date Status Medication Sig Dispensed Refills Start Date Active cloniDINE 0.2 mg/24 hr weekly. 3 01 patch Sunday 9 Active pramipexole 0.5 mg tablet TAKE 1 [...] artery disease daily. Indications: coronary artery disease 04/22/2019 Discontinued aspirin 325 mg tablet Take 325 mg 0 by mouth daily. documented as of this encounter (statuses as of 04/23/2019) Active Problems Problem Noted Date S/P drug eluting coronary stent placement 04/22/2019 Overview: Synergy RAN 2.75mm x 28mm to distal RCA by Dr. Mtz on 04/22/19 documented as of this encounter (statuses as of 04/23/2019) Social History Date Tobacco Use Types Packs/Day Years Used Never Assessed Sex Assigned at Date Recorded Not on file Industry Job Start Date Occupation Not on file Not on file Not on file Travel End Travel History Travel Start No recent travel history available. documented as of this encounter Last Filed Vital Signs Reading Time Taken Comments Vital Sign 127/77 04/22/2019 7:45 PM CDT standing Blood Pressure 56 04/22/2019 7:45 PM CDT Pulse 37.1 C (98.7 F) 04/22/2019 11:56 AM CDT Temperature 20 04/22/2019 7:45 PM CDT Respiratory Rate 99% 04/22/2019 7:45 PM CDT Oxygen Saturation - - Inhaled Oxygen Concentration 127 kg (280 lb) 04/22/2019 11:56 AM CDT Weight 193 cm (6' 4") 04/22/2019 11:56 AM CDT Height 34.08 04/22/2019 11:56 AM CDT Body Mass Index documented in this encounter Discharge Instructions * Instructions* Oumou Eagle RN - 04/22/2019 Patient Discharge Instructions Follow instructions as indicated below: Discharge Orders Activity As Tolerated Lift nothing heavier than 5 pounds for 2 weeks Do not operate a motorized vehicle for 2 days Keep area dry and clean Do not remove band-aid for the first 24 hours after procedure Do not soak in bathtub or hot tub for the first 24 hours after procedure Watch for bleeding, swelling, pain, fever, and any discharge call the Boring Machine Operator ( during hours) Order Comments: At nights, weekends or holidays, call the [facility] hospital barrel line operator at . Ask the barrel line operator to page the Cardiac Cath Fellow who is on-ca ll. Avoid making important life decisions for the first 48 hours No strenuous activity for 72 hours Drink plenty of water Continue previous outpatient medications Hold Metformin for 48 hours Discharge Follow-up: Specialty Provider ROSALINDA MTZ; 2 Weeks To Provider: ROSALINDA MTZ [[id number]] Patient's Preferred Location: [place] Discharge Disposition: HOME, (AHR) When (Patients with risk for unplanned readmission score over 16 or those noted as Hospital Dependent should follow up within 7 days with PCP or primary DX spec ialist): 2 Weeks Cardiac (2 gm Sodium, Low Fat, Low Cholesterol) Diet; Texture: Regular. Texture Regular. Diabetic: No Discharge Condition - Discharge Condition: GOOD Discharge Activity Discharge Activity: As Tolerated Discharge Activity: No Heavy Lifting or Strenuous Activity Resume pre procedure diet Order Comments: Resume pre procedure diet No VTE Prophylaxis given- Patient low risk for VTE; Not ordered during hospitali zation Weight: In general, sudden weight gains or losses should be reported to your pro vider. Cardiac patients should weigh daily and notify their provider for a weig ht gain of 3 pounds per day or 5 pounds per week. Follow-up appointments: To schedule other appointments, call the [facility] Health Access Center at [phone] or . You may also make appointments online by going to [email or web address] and follow the Request Appointment quicklink. Take Home Medications These are medications ordered for you by your healthcare provider. Do not take a ny other medications or supplements unless advised by your healthcare provider. Patient's Medications START taking these medications ASPIRIN 81 MG CHEWABLE TABLET Take 1 tablet by mouth daily. Indications: cor onary artery disease ATORVASTATIN 20 MG TABLET Take 1 tablet by mouth at bedtime. Indications: In cision through the Skin to Repair Blood Vessels of Heart CLOPIDOGREL 75 MG TABLET Take 1 tablet by mouth daily. Indications: Incision through the Skin to Repair Blood Vessels of Heart CONTINUE taking these medications which have NOT CHANGED ACETAMINOPHEN-CODEINE 300-60 MG TABLET every 6 (six) hours as needed. AMLODIPINE 5 MG TABLET Take 5 mg by mouth daily. CLONIDINE 0.2 MG/24 HR PATCH weekly. Sunday ESOMEPRAZOLE 40 MG CAPSULE TAKE ONE CAPSULE BY MOUTH EVERY DAY 90 DAYS EZETIMIBE 10 MG TABLET Take 10 mg by mouth daily. FENOFIBRATE 145 MG TABLET Take 145 mg by mouth daily. GABAPENTIN 300 MG CAPSULE 2 (two) times daily. METOPROLOL TARTRATE 100 MG TABLET Take 100 mg by mouth daily. PRAMIPEXOLE 0.5 MG TABLET TAKE 1 TABLET BEFORE BEDTIME ONCE A DAY ONCE A DAY ORALLY 90 DAYS TRIAMTERENE-HYDROCHLOROTHIAZIDE 37.5-25 MG PER CAPSULE Take 1 capsule by nile th every morning. START taking Modified Medications as Prescribed No medications on file STOP taking these medications ASPIRIN 325 MG TABLET Take 325 mg by mouth daily. Medications: Your doctor may prescribe medicine to prevent blood clots. You ma y also have to take medicine to prevent chest pain. Take your medicine as usual after the procedure unless your doctor has told you to stop. Any changes in you r medicine's schedule will be explained to you. For questions regarding follow-up instructions call the [facility] at or For worsening symptoms/changing condition/problems or questions: During normal business hours call the [facility] Cardiac Boring Machine Operator at . At nights, weekends or holidays, call the [facility] hospital barrel line operator at . Ask the barrel line operator to page the Cardiac Cath Fellow who is on-call. Emergency: Go to the closest emergency room or call [phone] Signs and Symptoms of a Problem: Call your doctor if you have any of the follow ing problems: Fever Swelling, pain, redness around the puncture site Foul smell or drainage from the site Odd changes in sensations, like numbness, tingling, coldness or pain in the a rm or leg where the catheter was inserted. If you start Bleeding: Apply pressure to the site. If the bleeding continues, h ave someone call your doctor and make arrangements to see him/her. Please follo w the doctor's directions. Our Goal is to Always Provide You with Very Good Care! We will be mailing you a survey, Please complete and return at your convenience. Thank You TOBACCO AVOIDANCE Exposure to tobacco either from smoking or from second hand (environmental) smok e or smokeless tobacco (snuff) is damaging to your health. This information is to encourage everyone to avoid tobacco exposure. It is recommended that you: ? If you smoke or use smokeless tobacco, we encourage you to quit. ? If you have already quit smoking, continue your good work! ? If you do not smoke or use smokeless tobacco, do not start. ? Avoid secondhand smoke. Additional Resources You may want to contact these organizations for further information on smoking a nd how to quit. [place] [employer], http://www.lungusa.org/stop-smoking/ [place] [employer], http://www.cancer.org/Healthy/StayAwayfromTobacco/index [place] [facility] Association, http://www.heart.org/HEARTORG/GettingHealthy/QuitSmo tomas/Quit-Smoking_[facility]_001085_SubHomePage.jspInstrucciones para darell de toya al pa ciente Siga las instrucciones benito se indica a continuacin: Discharge Orders Activity As Tolerated Lift nothing heavier than 5 pounds for 2 weeks Do not operate a motorized vehicle for 2 days Keep area dry and clean Do not remove band-aid for the first 24 hours after procedure Do not soak in bathtub or hot tub for the first 24 hours after procedure Watch for bleeding, swelling, pain, fever, and any discharge call the Boring Machine Operator ( during hours) Order Comments: Avoid making important life decisions for the first 48 hours No strenuous activity for 72 hours Drink plenty of water Continue previous outpatient medications Hold Metformin for 48 hours Discharge Follow-up: Specialty Provider ROSALINDA MTZ; 2 Weeks To Provider: ROSALINDA MTZ [[id number]] Patient's Preferred Location: [place] Discharge Disposition: HOME, (AHR) When (Patients with risk for unplanned readmission score over 16 or those noted as Hospital Dependent should follow up within 7 days with PCP or primary DX spec ialist): 2 Weeks Cardiac (2 gm Sodium, Low Fat, Low Cholesterol) Diet; Texture: Regular. Texture Regular. Diabetic: No Discharge Condition - Discharge Condition: GOOD Discharge Activity Discharge Activity: As Tolerated Discharge Activity: No Heavy Lifting or Strenuous Activity Resume pre procedure diet Order Comments: Resume pre procedure diet No VTE Prophylaxis given- Patient low risk for VTE; Not ordered during hospitali zation Peso: Por lo general, un repentino aumento o prdida de peso, debe ser reportad o a alcaraz mdico. Los pacientes cardacos deben pesarse a diario y avisarle a alcaraz proveedor de shanthi, si hay un aumento de 3 libras en un da o 5 en marifer semana. Citas de seguimiento: Para programar otras citas, llame al [facility] al nmer o: al 1- . Usted tambin puede hacer citas por internet en: [email or web address] y luego siga a Request Appointment. Medicinas para Sandra en Novice Estas son medicinas ordenadas para usted por alcaraz proveedor de shanthi. No tome daniel marifer otra medicina o suplemento a menos que sea recomendada por alcaraz proveedor de s alud. Patient's Medications START taking these medications ASPIRIN 81 MG CHEWABLE TABLET Take 1 tablet by mouth daily. Indications: cor onary artery disease ATORVASTATIN 20 MG TABLET Take 1 tablet by mouth at bedtime. Indications: In cision through the Skin to Repair Blood Vessels of Heart CLOPIDOGREL 75 MG TABLET Take 1 tablet by mouth daily. Indications: Incision through the Skin to Repair Blood Vessels of Heart CONTINUE taking these medications which have NOT CHANGED ACETAMINOPHEN-CODEINE 300-60 MG TABLET every 6 (six) hours as needed. AMLODIPINE 5 MG TABLET Take 5 mg by mouth daily. CLONIDINE 0.2 MG/24 HR PATCH weekly. Sunday ESOMEPRAZOLE 40 MG CAPSULE TAKE ONE CAPSULE BY MOUTH EVERY DAY 90 DAYS EZETIMIBE 10 MG TABLET Take 10 mg by mouth daily. FENOFIBRATE 145 MG TABLET Take 145 mg by mouth daily. GABAPENTIN 300 MG CAPSULE 2 (two) times daily. METOPROLOL TARTRATE 100 MG TABLET Take 100 mg by mouth daily. PRAMIPEXOLE 0.5 MG TABLET TAKE 1 TABLET BEFORE BEDTIME ONCE A DAY ONCE A DAY ORALLY 90 DAYS TRIAMTERENE-HYDROCHLOROTHIAZIDE 37.5-25 MG PER CAPSULE Take 1 capsule by nile th every morning. START taking Modified Medications as Prescribed No medications on file STOP taking these medications ASPIRIN 325 MG TABLET Take 325 mg by mouth daily. Medicinas: Alcaraz doctor puede recetar medicinas para prevenir la formacin de co gulos. Usforrest tambin puede sandra medicinas para evitar el dolor de pecho. Ran pus del procedimiento, tome alexander medicinas benito siempre lo hamilton hecho, a menos qu e alcaraz doctor le haya dicho que no lo kelechi. Cualquier cambio en el horario de alexander medicamentos se le explicara a usted. Si tiene preguntas relacionadas con las instrucciones de seguimiento llame al [facility] al [phone] al - . Si alexander sntomas empeoran/cambios en la condicin/problemas o preguntas: ? Bassem horas normales de oficina llame al [facility] Cateterismo Cardiaco de [facility] al: . ? En las noches, fines de semana o islas festivos, llame al Operador del hospita de [facility] al: . Pdale al operador que llame al proveedor de shanthi de Cateteri smo Cardiaco que est de heath. ? Emergencia: Vaya a la iggy de emergencia ms cercana o llame al 911. Joann y sntomas de un problema: Llame a alcaraz doctor si usted tiene cualquiera de los siguientes problemas: ? Fiebre ? Hinchazn, dolor, enrojecimiento alrededor del sitio de la puncin. ? Mal olor o secrecin por el sitio. ? Cambios extraos en la sensacin, benito, adormecimiento, hormigueo, enfriamie nto o dolor en el brazo o la pierna donde se inserto el catter. Si usted empieza a sangrar: Ponga presin en el sitio. Si el sangrado contin a, pdale a alguien llame a alcaraz doctor y kelechi arreglos para verlo. Por favor si ga las instrucciones de alcaraz doctor. iNuestra meta es proveerle siempre a usted, marifer muy buena atencin! Nosotros le enviaremos marifer encuesta, por favor llnela y devulvala a alcaraz conv eniencia. Dee Evitar El Tabaco La exposicin al tabaco ya sea por fumar o por humo de segunda mano (humo ambie ntal o el tabaco sin humo) es perjudicial para alcaraz shanthi. Esta informacin es pa ra animar a todos para evitar la exposicin al tabaco. Se recomienda que: Si usted fuma o usa tabaco sin humo le animamos a dejarlo. Lyn hamilton dejado de fumar, contine con alcaraz buen trabajo! Si usted no fuma o usa tabaco sin humo no empiece. Evite el humo de segunda mano. Recursos adicionales Usted puede ponerse en contacto con estas organizaciones, para obtener ms inf ormacin sobre el tabaco y patient carrier dejar de fumar. [place] Lung Association (asociacin Americana del pulmn), http://WWW.lungusa.org/stop-smoking/ [place] Cancer Society (sociedad Americana del cncer, http://WWW.cancer.org/Healthy/StayAwayfromTobacco/index [place] Heart [employer] (asociacin Americana del corazn), http://WWW.heart,org/HEARTORG/GettingHealthy/QuitSmoking/Quit-Smoking [facility] [address] SubHomePage.Isp documented in this encounter Plan of Treatment Health Maintenance Due Date Last Done Comments HEPATITIS C (HCV) SCREEN 1955 DTaP,Tdap,and Td Vaccines 1972 (1 - Tdap) COLONOSCOPY 12/09/2003 Zoster Recombinant 12/09/2003 Vaccine (SHINGRIX) (1 of 2) Medicare Wellness Visit 2018 PNEUMOCOCCAL VACCINES 65+ 2018 (1 of 2 - PCV13) INFLUENZA VACCINE (#1) 2019 documented as of this encounter Procedures Comments Procedure Name Priority Date/Time Associated Diag nosis CATH PROCEDURE LOG Routine 04/22/2019 2:18 PM CDT CBC WITH DIFFERENTIAL Routine 04/22/2019 Abnormal stress test 11:55 AM CDT PROTHROMBIN TIME / INR Routine 04/22/2019 Coronar y artery disease 11:55 AM CDT with angina pectoris, unspecified vessel or lesion type, unspecified whether minto or transplanted heart Abnormal stress test CBC WITH DIFF Routine 04/22/2019 Abnormal stress test 11:55 AM CDT BASIC METABOLIC PANEL Routine 04/22/2019 Abnormal stress test (NA, K, CL, CO2, GLUCOSE, 11:55 AM CDT BUN, CREATININE, CA) documented in this encounter Results * CBC WITH DIFFERENTIAL (04/22/2019 11:55 AM CDT) WBC 5.88 4.20 - 10.70 [facility] 10*3/L [facility] RBC 3.59 (L) 4.26 - 5.52 10*6/L [facility] HGB 11.3 (L) 12.2 - 16.4 g/dL [facility] HCT 33.9 (L) 38.4 - 49.3 % [facility] MCV 94.4 81.7 - 95.6 fL [facility] MCH 31.5 26.1 - 32.7 pg [facility] MCHC 33.3 31.2 - 35.0 g/dL [facility] RDW-SD 44.9 38.5 - 51.6 fL [facility] RDW-CV 13.0 12.1 - 15.4 % [facility] PLT 176 150 - 328 10*3/L [facility] MPV 10.3 9.8 - 13.0 fL [facility] NRBC/100 WBC 0.0 0.0 - 10.0 /[address] [facility] NRBC x10^3 <0.01 10*3/L [facility] GRAN MAT (NEUT) 57.0 % [facility] Y % [facility] IMM GRAN % 0.20 % [facility] LYMPH % 33.3 % [facility] MONO % 7.7 % [facility] EOS % 1.5 % [facility] BASO % 0.3 % [facility] GRAN MAT 3.35 1.99 - 6.95 10*3/uL [facility] x10^3(ANC) [facility] IMM GRAN x10^3 <0.03 0.00 - 0.06 10*3/uL [facility] LYMPH x10^3 1.96 1.09 - 3.23 10*3/uL [facility] MONO x10^3 0.45 0.36 - 1.02 10*3/uL [facility] EOS x10^3 0.09 0.06 - 0.53 10*3/uL [facility] BASO x10^3 <0.03 0.01 - 0.09 10*3/uL [facility] Specimen Blood Performing Organization Address City/State/Zipcode Ph one Number [facility] CLIA: [id number], [address] [facility] * PROTHROMBIN TIME / INR (04/22/2019 11:55 AM CDT) PROTIME PATIENT 11.9 10.1 - 12.6 Seconds [facility] INR 1.1Comment: Normal INR <1.1; [facility] Warfarin Therapeutic range 2.0 [facility] to 3.0 or 2.5 to 3.5, [facility] depending upon the indications. Specimen Blood Performing Organization Address City/[facility]/Zipcode Ph one Number [facility] CLIA: [id number], [address] [place], [place] [address] [facility] * BASIC METABOLIC PANEL (NA, K, CL, CO2, GLUCOSE, BUN, CREATININE, CA) (04/22/2019 11:55 AM CDT) NA 141 135 - 145 mmol/L [facility] RY [facility] K 4.2 3.5 - 5.0 mmol/L [facility] RY [facility] CL 104 98 - 108 mmol/L [facility] Y [facility] CO2 TOTAL 29 23 - 31 mmol/L [facility] AGAP 8 2 - 16 [facility] BUN 22 7 - 23 mg/dL [facility] GLUCOSE 90 70 - 110 mg/dL [facility] CREATININE 0.84 0.60 - 1.25 mg/dL [facility] CALCIUM 9.7 8.6 - 10.6 mg/dL [facility] eGFR 91.7 mL/min/1.73m2 [facility] Calculation SERVICES-CLEAR (Non[facility] [place]) eGFR 111.1 mL/min/1.73m2 [facility] Calculation SERVICES-CLEAR ([facility] [place]) Specimen Blood Narrative Performed At Association of Glomerular Filtration Rate (GFR) and S taging of Kidney Disease* [facility] + + +------ + [facility] | GFR (mL/min/1.73 m2)| With Kidney Damage| Without Kidney Damage CAMPUS + + -------+ + |>90 |Stage one| Normal + + -------+ + |60-89 |Stage two| Decreased GFR + + -------+ + |30-59 |Stage three| Stage three + + -------+ + |15-29 |Stage four | Stage four + + -------+ + |<15 (or dialysis)|Stag e five | Stage five + + -------+ + *Each stage assumes the associated GFR level has been in effect for at least three months.Stages 1 to 5, with or without kidney disease, indicate chronic kidney disease. Notes: Determination of stages one and two (with eGFR >59mL/min/1.73 m2) requires estimation of kidney damage fo r at least three months as defined by structural or functional abnormalities of the kidney, manifested by either: Pathological abnormalities or Markers o f kidney damage (including abnormalities in the composition of the blood or urin e or abnormalities in imaging tests). Performing Organization Address City/State/Zipcode Ph one Number [facility] CLIA: [id number], [address] [facility] [place] [address] [facility] documented in this encounter Visit Diagnoses Diagnosis S/P drug eluting coronary stent placeme nt - Primary Abnormal stress test Other nonspecific abnormal cardiovascul ar system function study Coronary artery disease with angina pec toris, unspecified vessel or lesion type, unspecified whether minto or transplanted heart documented in this encounter Administered Medications Action Date Dose Rate Site Medication Order MAR Action 04/22/2019 12:00 PM CDT 0.5 mg ALPRAZolam (XANAX) tablet 0.5 mg Given 0.5 mg, Oral, ONCE, 1 dose, Sun04/22/19 at 1145, Routine 04/22/2019 2:38 PM CDT 81 mg aspirin chewable tablet Given Oral, PRN, Starting Sun04/22/19 at 1438, Until Sun04/22/19 at 1438, Routine 04/22/2019 2:27 PM CDT 95.25 mg bivalirudin (ANGIOMAX) IV bolus Given Slow IV Push, PRN, Starting Sun04/22/19 at 1427, Until Sun04/22/19 at 1427, Routine 04/22/2019 2:27 PM CDT 1.75 mg/kg/hr bivalirudin (ANGIOMAX) IV bolus New Bag Slow IV Push, CONTINUOUS PRN, Starting Sun04/22/19 at 1427, Until Sun04/22/19 at 1427, Routine 04/22/2019 12:00 PM CDT 50 mg diphenhydrAMINE (BENADRYL) tablet 50 mg Given 50 mg, Oral, ONCE, 1 dose, Sun04/22/19 a t 1145, Routine 04/22/2019 2:26 PM CDT 25 mcg FENTanyl PF (SUBLIMAZE (PF)) injection Given Slow IV Push, PRN, Starting Sun04/22/19 at 1417, Until Sun04/22/19 at 1426, Routine 50 mcg Given 04/22/2019 2:17 PM CDT 04/22/2019 2:18 PM CDT 1 mL lidocaine 1% (PF) (XYLOCAINE) injection Given Infiltration, PRN, Starting Sun04/22/19 at 1418, Until Sun04/22/19 at 1418, Routine 04/22/2019 2:26 PM CDT 1 mg midazolam (VERSED) injection Given IV Push, PRN, Starting Sun04/22/19 at 1416, Until Sun04/22/19 at 1426, Routine 2 mg Given 04/22/2019 2:16 PM CDT 04/22/2019 3:00 PM CDT 1,000 mL 75 mL/hr NaCl 0.9% (NS) IV infusion 1,000 mL New Bag at 75 mL/hr, IV Infusion, CONTINUOUS, Starting Sun04/22/19 at 1500, Until Sun04/22/19 at 1959, Routine 04/22/2019 2:36 PM CDT 300 mcg nitroglycerin (TRIDIL) 2 mg in 10 mL D5W Given for Cardiac Cath Intravenous, PRN, Starting Sun04/22/19 a t 1431, Until Sun04/22/19 at 1436, Routine 300 mcg Given 04/22/2019 2:31 PM CDT 04/22/2019 2:36 PM CDT 60 mg prasugrel (EFFIENT) tablet Given Oral, PRN, Starting Sun04/22/19 at 1436, Until Sun04/22/19 at 1436, Routine documented in this encounter Insurance Type Payer Benefit Subscriber ID Effective Phone Address Plan / Dates Group Medicare MEDICARE MEDICARE xxxxxxxxxxx 2018-P [phone] [address] [employer] B resent [id number] [place] [id number] Indemnity AETNA AETNA [id number] 2018-P INDEMNITY resent documented as of this encounter
--- OUTSIDE RECORDS SUMMARY | 2020-03-19 01:48 | XMS REPORT | Summary of Care ---
Author Author [facility] Organization [facility] Address Unknown Phone Unavailable Care Team Providers Care Small Arms Repairer Name Role Phone Srinath Kapadia PCP Encounter Details Care Team Description Date Type Department Doctor Unassigned, [address] [place] [address] 04/23/2019 Orders Only [facility] [address] [place] [address] Allergies Comments Active Allergy Reactions Severity Noted [...] filedocumented in this encounter Plan of Treatment Health [...] Associated Diag nosis EXTERNAL PROVIDER RECORDS Routine 04/23/2019 12:01 AM CDT documented in this encounter Results Not on filedocumented in this encounter Insurance Type Payer Benefit Subscriber ID Effective Phone Address Plan / Dates Group Medicare MEDICARE MEDICARE xxxxxxxxxxx 2018-P [phone] [address] PART A [employer] B resent [id number] [place]ER [id number] Indemnity AETNA AETNA [id number] 2018-P INDEMNITY resent documented as of this encounter
== END | disposition home or self-care (01) ==
LOC: ER 08:25 → CATH LAB 13:34
PROVIDERS: ATTEND Internal Medicine Interventional Cardiology
DX: I48.92 Unspecified atrial flutter (principal); I10 Essential (primary) hypertension; I25.10 Atherosclerotic heart disease of native coronary artery without angina pectoris; E78.5 Hyperlipidemia, unspecified; Z95.810 Presence of automatic (implantable) cardiac defibrillator; U07.1 COVID-19
CPT/HCPCS: 36415; 71045; 80053; 82550; 82553; 83880; 84443; 84484; 85025; 85610; 85730; 87635; 93312; 93320; 93325; 99283; J2250; J3010; J7030; 92960; 99152; 99153; U0002

== ENCOUNTER 2021-02-05 13:12 | Observation (INO) | payer MEDICARE ==
[~2021-02-05] VITALS: Ht 193 cm; Wt 127.0 kg
[~2021-02-05 13:12] MED LIST changes: -ACETAMINOPHEN 325 MG TAB ONE; -BENZOCAINE 20% SPR 60 ML CAN ONE; -FENTANYL CITRATE/PF 100MCG/2 ML INJ ONE; -MIDAZOLAM HCL 2 MG/2 ML VIAL ONE; -SODIUM CHLORIDE 0.9% 1000ML 1,000 ML IV STA; -SODIUM CHLORIDE 0.9% 1000ML 1,000 ML ONE
[2021-02-05] MEDS ORDERED: SODIUM CHLORIDE 0.9% 1000ML 1,000 ML IV STA (13:15)
[2021-02-05 13:43] LABS: BASOPHILS % 0.5 % (0.0-1.0); EOSINOPHILS # (AUTO) 0.1 (0.0-0.4); EOSINOPHILS % 1.5 % (0.0-6.0); HEMOGLOBIN 11.9 g/dL (14.0-18.0); LYMPHOCYTES # (AUTO) 1.6 (1.0-3.2); LYMPHOCYTES % 27.3 % (18.0-39.1); MEAN CORPUSCULAR HEMOGLOBIN 30.9 pg (28-32); MEAN CORPUSCULAR HGB CONC 32.2 g/dL (31-35); MEAN CORPUSCULAR VOLUME 96.1 fL (81-99); MONOCYTES # (AUTO) 0.5 (0.2-0.8); MONOCYTES % 8.5 % (4.4-11.3); NEUTROPHILS # (AUTO) 3.7 (2.1-6.9); NEUTROPHILS % 61.9 % (38.7-80.0); PLATELET COUNT 155 x10e3/uL (140-360); RED BLOOD COUNT 3.85 x10e6/uL (4.3-5.7); RED CELL DISTRIBUTION WIDTH 12.8 % (11.7-14.4)
[2021-02-05 13:49] LABS: CLARITY,URINE HAZY (CLEAR); COLOR,URINE YELLOW (YELLOW); LEUKOCYTE ESTERASE ,URINE TRACE (NEGATIVE); NITRITE,URINE NEGATIVE (NEGATIVE); PROTEIN,URINE DIPSTICK 1+ (NEGATIVE)
[2021-02-05 13:50] LABS: KETONES,URINE 1+ (NEGATIVE); URINE UROBILINOGEN 1 mg/dL (0.2 - 1)
[2021-02-05 13:59] LABS: BACTERIA,URINE MODERATE /HPF; EPITHELIAL CELLS,URINE FEW /LPF; WBC,URINE (MAN) 21-50 /HPF (0-5)
[2021-02-05 14:06] LABS: ALANINE AMINOTRANSFERASE 17 IU/L (0-55); ALBUMIN 4.3 g/dL (3.5-5.0); ALBUMIN/GLOBULIN RATIO 1.7 (0.8-2.0); ALKALINE PHOSPHATASE 42 IU/L (40-150); ANION GAP 13.3 mmol/L (8-16); BLOOD UREA NITROGEN 22 mg/dL (7-26); BUN/CREATININE RATIO 16 (6-25); CALCIUM 8.5 mg/dL (8.4-10.2); CARBON DIOXIDE 27 mmol/L (22-29); CHLORIDE 107 mmol/L (98-107); CREATINE KINASE 366 IU/L (30-200); EST GLOMERULAR FILTRATION RATE 51 ML/MIN (60-); GLUCOSE 77 mg/dL (74-118); POTASSIUM 4.3 mmol/L (3.5-5.1); SODIUM 143 mmol/L (136-145)
[2021-02-05] MEDS: CEFTRIAXONE 1 GM in SODIUM CHLORIDE 0.9% 50ML 50 ML IV SCH ×2 (14:39→21:28)
[2021-02-05] MEDS ORDERED: ONDANSETRON HCL INJ 2MG/ML 2ML 2 MG/ML VIAL IV PRN (15:30)
[2021-02-05] MEDS: SODIUM CHLORIDE 0.9% 1000ML 1,000 ML IV SCH (15:50)
[2021-02-05] MEDS: FAMOTIDINE 20 MG/2 ML VIAL IV SCH (15:50)
[2021-02-05 16:55] VITALS: BP 165/92
[2021-02-05] MEDS ORDERED: ELIQUIS5 MG PO (17:24)
[2021-02-05] MEDS ORDERED: AMIODARONE HCL200 MG PO (17:24)
[2021-02-05] MEDS ORDERED: LOSARTAN POTAS100 MG PO (17:24)
[2021-02-05] MEDS ORDERED: SPIRONOLACTONE25 MG PO (17:24)
[2021-02-05] MEDS ORDERED: CARDURA2 MG PO (17:24)
[2021-02-05 17:48] VITALS: BP 165/92
[2021-02-05] MEDS: ACETAMINOPHEN/CODEINE 300MG - 30MG TAB PO SCH (19:39)
[2021-02-05 20:00] VITALS: BP 165/97
[2021-02-05] MEDS ORDERED: ATORVASTATIN 40 MG TAB PO SCH (21:00)
[2021-02-05] MEDS ORDERED: DOXAZOSIN MESYLATE 2 MG TAB PO SCH (21:00)
[2021-02-05] MEDS ORDERED: EZETIMIBE 10 MG TAB PO SCH (21:00)
[2021-02-05] MEDS: GABAPENTIN 300 MG CAP PO SCH (21:27)
[2021-02-06 00:20] VITALS: BP 156/94
[2021-02-06] MEDS: FAMOTIDINE 20 MG/2 ML VIAL IV SCH (03:43)
[2021-02-06 03:53] LABS: BASOPHILS # (AUTO) 0.1 (0.0-0.1); BASOPHILS % 0.8 % (0.0-1.0); EOSINOPHILS # (AUTO) 0.2 (0.0-0.4); EOSINOPHILS % 2.7 % (0.0-6.0); LYMPHOCYTES % 31.4 % (18.0-39.1); MEAN CORPUSCULAR HEMOGLOBIN 31.3 pg (28-32); MEAN CORPUSCULAR HGB CONC 33.3 g/dL (31-35); MEAN CORPUSCULAR VOLUME 93.8 fL (81-99); MONOCYTES # (AUTO) 0.6 (0.2-0.8); MONOCYTES % 8.6 % (4.4-11.3); NEUTROPHILS # (AUTO) 3.6 (2.1-6.9); NEUTROPHILS % 56.2 % (38.7-80.0); PLATELET COUNT 129 x10e3/uL (140-360); RED BLOOD COUNT 3.84 x10e6/uL (4.3-5.7); RED CELL DISTRIBUTION WIDTH 12.8 % (11.7-14.4)
[2021-02-06 03:54] LABS: CREATINE KINASE 319 IU/L (30-200)
[2021-02-06] MEDS: ACETAMINOPHEN/CODEINE 300MG - 30MG TAB PO SCH ×2 (03:57→10:27)
[2021-02-06 04:21] LABS: ALANINE AMINOTRANSFERASE 15 IU/L (0-55); ALBUMIN 3.7 g/dL (3.5-5.0); ALBUMIN/GLOBULIN RATIO 1.5 (0.8-2.0); ALKALINE PHOSPHATASE 36 IU/L (40-150); ANION GAP 13.9 mmol/L (8-16); BLOOD UREA NITROGEN 16 mg/dL (7-26); BUN/CREATININE RATIO 18 (6-25); CARBON DIOXIDE 26 mmol/L (22-29); CHLORIDE 108 mmol/L (98-107); CHOLESTEROL 125 MD/DL (0-199); CREATININE, SERUM 0.91 mg/dL (0.72-1.25); EST GLOMERULAR FILTRATION RATE > 60 ML/MIN (60-); GLUCOSE 90 mg/dL (74-118); HDL CHOLESTEROL 41 MG/DL (40-60); LDL CHOLESTEROL 69 MG/DL (60-130); POTASSIUM 3.9 mmol/L (3.5-5.1); SODIUM 144 mmol/L (136-145); TRIGLYCERIDES 75 MG/DL (0-149)
[2021-02-06] MEDS: SODIUM CHLORIDE 0.9% 1000ML 1,000 ML IV SCH ×2 (05:46→12:11)
[2021-02-06] MEDS: CEFTRIAXONE 1 GM in SODIUM CHLORIDE 0.9% 50ML 50 ML IV SCH (08:28)
[2021-02-06] MEDS: GABAPENTIN 300 MG CAP PO SCH (08:30)
[2021-02-06] MEDS ORDERED: LOSARTAN POTASSIUM 25 MG TAB PO SCH (09:00)
[2021-02-06] MEDS ORDERED: ASPIRIN 81 MG ENTERIC COATED PO SCH (09:00)
[2021-02-06] MEDS ORDERED: APIXABAN 5 MG TABLET PO SCH (09:00)
[2021-02-06] MEDS ORDERED: AMIODARONE HCL 200 MG TAB PO SCH (09:00)
[2021-02-06] MEDS ORDERED: LOSARTAN POTASSIUM 100 MG TAB PO SCH (11:00)
[2021-02-06 11:14] LABS: CREATINE KINASE MB 6.5 ng/mL (0-5.0)
[2021-02-06 12:26] VITALS: BP 136/90
[2021-02-06] MEDS ORDERED: LOSARTAN POTAS100 MG PO (12:57)
[2021-02-06] MEDS ORDERED: SPIRONOLACTONE25 MG PO (12:57)
== END 2021-02-06 13:51 | disposition home or self-care (01) ==
LOC: ER 13:16 → ERHOLD 15:22 → MED/SURG2 17:09
DX: I95.2 Hypotension due to drugs (principal); T46.5X5A Adverse effect of other antihypertensive drugs, initial encounter; N30.00 Acute cystitis without hematuria; I10 Essential (primary) hypertension; I25.10 Atherosclerotic heart disease of native coronary artery without angina pectoris; E78.5 Hyperlipidemia, unspecified; Z86.16 Personal history of COVID-19; Z95.810 Presence of automatic (implantable) cardiac defibrillator; Z96.642 Presence of left artificial hip joint; I48.92 Unspecified atrial flutter; D64.9 Anemia, unspecified; E66.9 Obesity, unspecified; Z68.34 Body mass index [BMI] 34.0-34.9, adult
CPT/HCPCS: 36415 ×2; 70450; 71045; 72125; 80053 ×2; 80061; 81001; 82550 ×2; 82553 ×2; 83036; 83880; 84484 ×2; 85025 ×2; 87086; 93005; 99284; G0378 ×2; J0696 ×2; J7030 ×2

== ENCOUNTER 2021-02-09 15:26 | Emergency (ER) | payer MEDICARE ==
[~2021-02-09] VITALS: Ht 193 cm; Wt 127.0 kg
[~2021-02-09 15:26] MED LIST changes: +AMIODARONE HCL200 MG PO; +CARDURA2 MG PO; +ELIQUIS5 MG PO; +LOSARTAN POTAS100 MG PO; +SPIRONOLACTONE25 MG PO
[2021-02-09 16:10] LABS: BASOPHILS % 0.5 % (0.0-1.0); EOSINOPHILS # (AUTO) 0.1 (0.0-0.4); EOSINOPHILS % 2.1 % (0.0-6.0); HEMATOCRIT 40.1 % (38.2-49.6); LYMPHOCYTES # (AUTO) 1.7 (1.0-3.2); LYMPHOCYTES % 28.8 % (18.0-39.1); MEAN CORPUSCULAR HGB CONC 32.4 g/dL (31-35); MEAN CORPUSCULAR VOLUME 95.7 fL (81-99); MONOCYTES # (AUTO) 0.5 (0.2-0.8); MONOCYTES % 8.4 % (4.4-11.3); NEUTROPHILS # (AUTO) 3.6 (2.1-6.9); NEUTROPHILS % 59.9 % (38.7-80.0); PLATELET COUNT 154 x10e3/uL (140-360); RED BLOOD COUNT 4.19 x10e6/uL (4.3-5.7); RED CELL DISTRIBUTION WIDTH 12.7 % (11.7-14.4)
[2021-02-09 16:32] LABS: ALBUMIN 4.3 g/dL (3.5-5.0); ALBUMIN/GLOBULIN RATIO 1.4 (0.8-2.0); ANION GAP 12.3 mmol/L (8-16); CALCIUM 9.2 mg/dL (8.4-10.2); CREATININE, SERUM 1.02 mg/dL (0.72-1.25); POTASSIUM 4.3 mmol/L (3.5-5.1)
[2021-02-09 16:41] LABS: CREATINE KINASE MB 10.2 ng/mL (0-5.0)
[2021-02-09 18:01] VITALS: BP 154/97
== END 2021-02-09 18:02 | disposition home or self-care (01) ==
LOC: ER 15:55
DX: I10 Essential (primary) hypertension (principal); R94.31 Abnormal electrocardiogram [ECG] [EKG]; E78.5 Hyperlipidemia, unspecified; I25.10 Atherosclerotic heart disease of native coronary artery without angina pectoris; Z95.810 Presence of automatic (implantable) cardiac defibrillator
CPT/HCPCS: 36415; 80053; 82550; 82553; 84484; 85025; 93005; 99283

== ENCOUNTER 2021-11-30 15:45 | Observation (INO) | payer MEDICARE ==
[~2021-11-30] VITALS: Ht 193 cm; Wt 127.0 kg
[2021-11-30] MEDS ORDERED: DILTIAZEM HCL 5 MG/ML 5 ML VIAL IV ONE (16:15)
[2021-11-30 16:22] LABS: BASOPHILS % 0.3 % (0.0-1.0); EOSINOPHILS # (AUTO) 0.1 (0.0-0.4); EOSINOPHILS % 1.8 % (0.0-6.0); HEMATOCRIT 37.5 % (38.2-49.6); HEMOGLOBIN 12.5 g/dL (14.0-18.0); LYMPHOCYTES # (AUTO) 1.3 (1.0-3.2); LYMPHOCYTES % 21.7 % (18.0-39.1); MEAN CORPUSCULAR HEMOGLOBIN 30.6 pg (28-32); MEAN CORPUSCULAR HGB CONC 33.3 g/dL (31-35); MEAN CORPUSCULAR VOLUME 91.7 fL (81-99); MONOCYTES # (AUTO) 0.5 (0.2-0.8); MONOCYTES % 7.3 % (4.4-11.3); NEUTROPHILS # (AUTO) 4.3 (2.1-6.9); NEUTROPHILS % 68.7 % (38.7-80.0); PLATELET COUNT 151 x10e3/uL (140-360); RED BLOOD COUNT 4.09 x10e6/uL (4.3-5.7)
[2021-11-30 16:30] LABS: INR 0.97; PROTHROMBIN TIME 13.8 seconds (11.9-14.5)
[2021-11-30 16:31] LABS: PARTIAL THROMBOPLASTIN TIME 25.1 seconds (23.8-35.5)
[2021-11-30 16:40] LABS: ALANINE AMINOTRANSFERASE 27 IU/L (0-55); ALBUMIN/GLOBULIN RATIO 1.4 (0.8-2.0); ALKALINE PHOSPHATASE 51 IU/L (40-150); ANION GAP 11.7 mmol/L (8-16); BLOOD UREA NITROGEN 12 mg/dL (7-26); BUN/CREATININE RATIO 15 (6-25); CALCIUM 9.2 mg/dL (8.4-10.2); CARBON DIOXIDE 27 mmol/L (22-29); CHLORIDE 107 mmol/L (98-107); CREATINE KINASE 115 IU/L (30-200); CREATININE, SERUM 0.79 mg/dL (0.72-1.25); EST GLOMERULAR FILTRATION RATE 98 ML/MIN (60-); GLUCOSE 160 mg/dL (74-118); POTASSIUM 3.7 mmol/L (3.5-5.1); SODIUM 142 mmol/L (136-145)
[2021-11-30] MEDS ORDERED: HYDROCODONE/APAP 5MG-325MG TAB PO ONE (17:00)
[2021-11-30] MEDS ORDERED: AMLODIPINE BESYL5 MG PO (17:43)
[2021-11-30] MEDS: ENOXAPARIN SODIUM INJ 100 MG/ML SYR SC SCH (17:55)
[2021-11-30] MEDS ORDERED: SODIUM CHLORIDE FLUSH 10 ML SYR INJ PRN (18:15)
[2021-11-30] MEDS ORDERED: ONDANSETRON HCL INJ 2MG/ML 2ML 2 MG/ML VIAL IV PRN (18:15)
[2021-11-30] MEDS ORDERED: ASPIRIN 81 MG CHEW TAB PO ONE (18:15)
[2021-11-30] MEDS ORDERED: SODIUM CHLORIDE 0.9% 50ML 50 ML ONE (19:40)
[2021-11-30] MEDS ORDERED: IOPAMIDOL 370 MG/ML 100 ML INFUS..BTL INJ ONE (19:40)
[2021-12-01 05:00] LABS: BASOPHILS % 0.4 % (0.0-1.0); EOSINOPHILS # (AUTO) 0.1 (0.0-0.4); EOSINOPHILS % 2.3 % (0.0-6.0); HEMATOCRIT 33.3 % (38.2-49.6); HEMOGLOBIN 11.2 g/dL (14.0-18.0); LYMPHOCYTES # (AUTO) 1.5 (1.0-3.2); LYMPHOCYTES % 31.8 % (18.0-39.1); MEAN CORPUSCULAR HEMOGLOBIN 30.8 pg (28-32); MEAN CORPUSCULAR HGB CONC 33.6 g/dL (31-35); MEAN CORPUSCULAR VOLUME 91.5 fL (81-99); MONOCYTES # (AUTO) 0.5 (0.2-0.8); MONOCYTES % 10.7 % (4.4-11.3); NEUTROPHILS # (AUTO) 2.6 (2.1-6.9); NEUTROPHILS % 54.4 % (38.7-80.0); PLATELET COUNT 127 x10e3/uL (140-360); RED BLOOD COUNT 3.64 x10e6/uL (4.3-5.7)
[2021-12-01 05:23] LABS: ALBUMIN 3.4 g/dL (3.5-5.0); ALBUMIN/GLOBULIN RATIO 1.3 (0.8-2.0); ANION GAP 10.7 mmol/L (8-16); CALCIUM 8.7 mg/dL (8.4-10.2); CHOL/HDL RATIO 3.5 (3.9-4.7); CREATININE, SERUM 0.7 mg/dL (0.72-1.25); POTASSIUM 3.7 mmol/L (3.5-5.1)
[2021-12-01 05:47] VITALS: BP 143/81
[2021-12-01 05:54] LABS: CREATINE KINASE 79 IU/L (30-200)
[2021-12-01] MEDS: ENOXAPARIN SODIUM INJ 100 MG/ML SYR SC SCH ×2 (06:00→17:30)
[2021-12-01 07:43] LABS: CLARITY,URINE CLEAR (CLEAR); COLOR,URINE YELLOW (YELLOW); LEUKOCYTE ESTERASE ,URINE NEGATIVE (NEGATIVE); NITRITE,URINE NEGATIVE (NEGATIVE); PROTEIN,URINE DIPSTICK NEGATIVE (NEGATIVE)
[2021-12-01 07:44] LABS: KETONES,URINE NEGATIVE (NEGATIVE); URINE UROBILINOGEN 0.2 mg/dL (0.2 - 1)
[2021-12-01 08:01] LABS: BACTERIA,URINE FEW /HPF; EPITHELIAL CELLS,URINE RARE /LPF; RBC,URINE 0-5 /HPF (0-5); WBC,URINE (MAN) 0-5 /HPF (0-5)
[2021-12-01 08:48] VITALS: BP 143/81
[2021-12-01] MEDS: TIZANIDINE HCL 4 MG TAB PO SCH ×5 (08:58→20:23)
[2021-12-01] MEDS: METOPROLOL TARTRATE 50 MG TAB PO SCH ×5 (08:58→16:29)
[2021-12-01] MEDS: ACETAMINOPHEN/CODEINE 300MG - 30MG TAB PO PRN ×4 (08:59→21:17)
[2021-12-01 11:02] VITALS: BP 141/80
[2021-12-01 14:13] LABS: CREATINE KINASE 74 IU/L (30-200)
[2021-12-01 19:41] VITALS: BP 171/82
[2021-12-01 19:46] VITALS: BP 171/82
[2021-12-02] MEDS: ACETAMINOPHEN/CODEINE 300MG - 30MG TAB PO PRN ×2 (04:19→10:30)
[2021-12-02] MEDS: ENOXAPARIN SODIUM INJ 100 MG/ML SYR SC SCH (05:20)
[2021-12-02 05:24] VITALS: BP 164/98
[2021-12-02 07:57] VITALS: BP 166/90
[2021-12-02 08:15] VITALS: BP 166/90
[2021-12-02] MEDS: METOPROLOL TARTRATE 50 MG TAB PO SCH (09:11)
[2021-12-02] MEDS: TIZANIDINE HCL 4 MG TAB PO SCH (09:12)
[2021-12-02 11:49] VITALS: BP 160/95
== END 2021-12-02 14:03 | disposition home or self-care (01) ==
LOC: ER 15:50 → ERHOLD 18:05 → MED/SURG2 20:38
DX: I48.92 Unspecified atrial flutter (principal); I48.0 Paroxysmal atrial fibrillation; I25.10 Atherosclerotic heart disease of native coronary artery without angina pectoris; I10 Essential (primary) hypertension; Z20.822 Contact with and (suspected) exposure to COVID-19; Z79.01 Long term (current) use of anticoagulants; Z95.0 Presence of cardiac pacemaker; E78.5 Hyperlipidemia, unspecified
CPT/HCPCS: 36415 ×2; 70450; 71045; 71260; 76705; 80053 ×2; 80061; 81001; 82550 ×2; 82553 ×2; 83880; 84484 ×2; 85025 ×2; 85610; 85730; 93005; 93306; 94799; 99284; G0378 ×3; J1650 ×3; Q9967; U0002